=== PATIENT | female | born 1990 | race Caucasian/White ===

== ENCOUNTER 2017-11-30 08:42 | Outpatient (CLI) | payer BC ==
--- NOTE | 2017-11-30 12:05 | RAD ---
ESOPHAGRAM: HISTORY: Dysphagia and difficulty swallowing. Prior fundoplication procedure with recurrent diaphragmatic her adam. FINDINGS: There is a recurrent diaphragmatic hernia with a portion of the fundus fixed above the diaphragm. Th ere is mild luminal narrowing between this fundus above the diaphragm and the portion of the stomach below the diaphragm. There is also mild luminal narrowing at the EG junction, which is above the sandra phragm. A 12 mm barium tablet was swallowed and did not pass beyond the portion of the fundus fixed above the diaphragm. Prominent GE reflux was demonstrated when the patient was placed recumbent. IMPRESSION: Recurrent diaphragmatic hernia with gastroesophageal reflux. POS: [facility]
== END 2017-11-30 08:43 | disposition home or self-care (01) ==
LOC: RAD 08:42
PROVIDERS: ATTEND Internal Medicine Gastroenterology
DX: R13.10 Dysphagia, unspecified (principal); K44.9 Diaphragmatic hernia without obstruction or gangrene; K21.9 Gastro-esophageal reflux disease without esophagitis; Z98.890 Other specified postprocedural states
CPT/HCPCS: 74220

== ENCOUNTER 2018-01-16 11:42 | Outpatient (CLI) | payer BC ==
[2018-01-16 13:07] LABS: #Basophils 0.1 thou/uL (0.0-0.2); #Eosinphils 0.1 thou/uL (0.0-0.7); #Lymphocytes 2.6 thou/uL (1.20-3.40); #Monocytes 0.4 thou/uL (0.11-0.59); %Basophils 1.4 % (0.0-1.0); %Eosinophils 1.2 % (0.0-10.0); %Lymphocytes 42.2 % (21.0-51.0); %Monocytes 6.4 % (0.0-10.0); %Neutrophils 48.8 % (42.0-75.0); Hemoglobin 13.6 g/dL (12.0-16.0); Mean Corpuscular HGB CONC 33.2 g/dL (32.0-36.0); Mean Corpuscular Hemoglobin 27.8 pg (27.0-31.0); Mean Corpuscular Volume 83.8 fl (81.0-99.0); Mean Platelet Volume 8.3 fL (7.4-10.4); Platelet Count 239 thou/uL (130-400); RBC Distribution Width 14.4 % (11.5-14.5); Red Blood Cell (RBC) Count 4.91 mill/uL (4.20-5.40); White Blood Cell (WBC) Count 6.1 thou/uL (4.8-10.8)
[2018-01-16 13:32] LABS: ALT (SGPT) 27 U/L (8-55); AST (SGOT) 23 U/L (5-34); Albumin 4.6 g/dL (3.5-5.0); Alkaline Phosphatase 107 U/L (40-150); Anion Gap 11 mmol/L (10-20); BUN (Urea Nitrogen) 10 mg/dL (7.0-18.7); Bilirubin, Total 0.4 mg/dL (0.2-1.2); Calc. Creatinine Clearance 0 mL/min (70-130); Calcium 9.5 mg/dL (7.8-10.44); Carbon Dioxide 26 mmol/L (22-29); Chloride 107 mmol/L (98-107); Estimated GFR-MDRD 81; Globulin 2.9 g/dL (2.4-3.5); Glucose 80 mg/dL (70-105); Potassium 3.8 mmol/L (3.5-5.1); Protein, Total 7.5 g/dL (6.0-8.3); Sodium 140 mmol/L (136-145)
[2018-01-16 13:56] LABS: BHCG - Serum Negative (NEGATIVE)
[2018-01-16 13:57] LABS: Pregs Control Background? CLEAR/WHITE (CLR/WHITE); Pregs Control Bar Appear? YES (CONTROL BAR)
== END 2018-01-16 11:43 | disposition home or self-care (01) ==
LOC: LABBT 11:42
PROVIDERS: ATTEND Surgery
DX: Z01.812 Encounter for preprocedural laboratory examination (principal); K21.9 Gastro-esophageal reflux disease without esophagitis
CPT/HCPCS: 80053; 84703; 85025

== ENCOUNTER 2018-01-26 05:52 | Inpatient (IN) | payer BC ==
[2018-01-16 12:14] VITALS: BMI 22.4
[2018-01-26] MEDS ORDERED: Bupivacaine/Epinephrine 0.25% 30 ML VIAL ONE (06:27)
[2018-01-26] MEDS ORDERED: Levofloxacin 500 mg/D5W 100 ml Premix Bag ONE (07:11)
--- NOTE | 2018-01-26 07:15 | HP ---
CHIEF COMPLAINT: Recurrent hiatal hernia with gastroesophageal reflux and dysphagia. HISTORY: A 27-year-old female who has had 2 previous hiatal hernia repairs with recurrence, very sym ptomatic with solid food. She has lost 12 pounds. She has quite a bit of pain when the food sticks. She had an EGD showing a recurrent paraesophageal hernia. PAST MEDICAL HISTORY: Significant for anemia, asthma, gastroesophageal reflux, lactose intolerance. PAST SURGICAL HISTORY: Include an EGD x2. She had a laparoscopic Steve fundoplication with EGD in 2011 and recurrence in 2014. MEDICATIONS: Advair, Flonase, ibuprofen, omeprazole, oral contraceptives, Zyrtec, vitamins. ALLERGIES: PENICILLIN. FAMILY HISTORY: Father has cancer. Mother has hypertension. SOCIAL HISTORY: She is , no tobacco, occasional alcohol. PHYSICAL EXAMINATION: VITAL SIGNS: Height 5 foot 4, weight 135, body mass index 23.2. Blood pressure 113/86, pulse 100. GENERAL: Well-developed, well-nourished female in no apparent distress. HEENT: Unremarkable. LUNGS: Clear. HEART: Regular rate and rhythm. ABDOMEN: Soft, nondistended, nontender, no palpable masses or hernias. EXTREMITIES: Good pulses. No pedal edema. ASSESSMENT: Recurrent paraesophageal hernia. PLAN: Laparoscopic paraesophageal hernia repair with mesh. CONSENT: I have discussed the planned procedure as well as risk of bleeding, infection, recurrence, injury to esophagus, spleen, loops of bowel, need to open. She understands and gives informed consen t.
[2018-01-26] MEDS ORDERED: Midazolam HCl 2 mg/2 ml Vial ONE ×2 (07:18→07:19)
[2018-01-26] MEDS ORDERED: Fentanyl 100 MCG/2 ML VIAL ONE (07:19)
[2018-01-26] MEDS ORDERED: HYDROmorphone 0.5 MG/0.5 ML SYRINGE ONE ×2 (07:21→10:21)
[2018-01-26] MEDS ORDERED: Lidocaine 1% (PF) 30 ML VIAL ONE (07:21)
[2018-01-26] MEDS ORDERED: Dextrose 5% in Water 1,000 ML IV PRN (09:45)
[2018-01-26] MEDS ORDERED: diphenhydrAMINE 50 MG/ML VIAL IVP PRN ×2 (09:45→09:47)
[2018-01-26] MEDS ORDERED: Ondansetron HCl/PF 4 MG/2 ML Vial IVP PRN ×2 (09:45→09:47)
[2018-01-26] MEDS ORDERED: Hydrocodone-Acetamin 15 ML UDCUP PO PRN ×2 (09:45→09:57)
[2018-01-26] MEDS ORDERED: hydrALAZINE 20 MG/ML VIAL SLOW IVP PRN (09:45)
[2018-01-26] MEDS ORDERED: Dextrose 50% Abboject 50 ML SYRINGE SLOW IVP PRN (09:45)
[2018-01-26] MEDS ORDERED: Promethazine HCl 25 MG/ML VIAL IM PRN ×2 (09:45→09:47)
[2018-01-26] MEDS ORDERED: diphenhydrAMINE 50 MG/ML VIAL IM PRN (09:47)
[2018-01-26] MEDS ORDERED: Meperidine HCl/PF 25 MG/ML VIAL SLOW IVP PRN (09:47)
[2018-01-26] MEDS ORDERED: diphenhydrAMINE 25 MG CAP PO PRN (09:47)
[2018-01-26] MEDS ORDERED: Naloxone HCl 0.4 mg/ml Vial IV PRN (09:47)
[2018-01-26] MEDS ORDERED: HYDROmorphone 10 mg/100 ml CADD IVPB PRN (09:47)
[2018-01-26] MEDS ORDERED: Promethazine HCl 25 MG/ML VIAL SLOW IVP PRN (09:47)
[2018-01-26] MEDS ORDERED: HYDROmorphone 2 MG/ML VIAL SLOW IVP PRN (09:47)
[2018-01-26] MEDS ORDERED: Zolpidem Tartrate 5 MG TAB PO PRN (09:47)
[2018-01-26] MEDS ORDERED: Communication Order-Pharmacy FS SCH (10:00)
--- NOTE | 2018-01-26 11:24 | OP ---
DATE OF PROCEDURE: 01/26/2018 PREOPERATIVE DIAGNOSIS: Recurrent paraesophageal hernia. SURGEON: Néstor Scott M.D. PROCEDURES PERFORMED: Laparoscopic recurrent paraesophageal hernia repair and EGD. INDICATIONS: This is a 27-year-old female who has had 2 previous hiatal hernia repairs with recurren ce and dysphagia. FINDINGS: Herniated wrap with paraesophageal component, very dense adhesions. The mesh was still in tact. PROCEDURE IN DETAIL: After informed consent was obtained, the patient was taken to the operating stone m and given general endotracheal anesthesia. She was placed in the lithotomy position. Her abdomen was prepped and draped in usual fashion. Local anesthesia infiltrated subcutaneously and deep and a 5 mm incision was performed approximately 8 inches below the xiphoid slightly to the left. Veress ne edle inserted. Drop test performed. Pneumoperitoneum was created to a volume of 2 liters of carbon dioxide. Utilizing a bladeless 5 mm trocar and 0-degree laparoscope, direct visual entry into the ab dominal cavity was performed. Pneumoperitoneum was created to a pressure of [address] aced in steep reverse Trendelenburg position. Nathansen liver retractor inserted. Left lobe of live r retracted superiorly. A second 5 mm port was placed just to the left of the falciform, then 8 mm p ort was placed left subcostal and another 5 mm port placed in left lateral abdomen. There was quite a bit of adhesions around the hiatus and it was just a very tedious careful dissection to free up and reduced this hiatal hernia. The wrap was intrathoracic including a paraesophageal component of the stomach. I was able to get it partially reduced, then placed a Nicky drain underneath and that all owed better retraction and could clean it up and completely reduce it to just a segment approximately 3 cm of esophagus was intra-abdominally. Now, the mesh was still intact and the hiatal opening did not appear to be dilated much. So, basically what I did was placed and sutured the esophagus circumf erentially with eight 2-0 silk sutures tied circumferentially to the hiatus. Then sutured the fundus to the abdominal wall under some tension to maintain reduction of the hernia. This was done also wi th a 2-0 silk suture. Then intraoperative endoscopy was performed. The video endoscope was inserted under direct vision. There was no air leak. There was no bleeding intragastric. The scope was ret roflexed and there was no paraesophageal component. The scope was advanced through the pylorus. It was patent. The stomach decompressed. Scope removed. Now the original repair was done over a 40 Fr ench bougie. Hemostasis assured. Then, Tisseel tissue sealant was applied circumferentially around the repair at the diaphragm. Hemostasis was assured. Trocars and retractors removed. The skin clos ed with interrupted 4-0 Rapide. Dermabond applied. The patient tolerated the procedure well and was transferred to recovery in good condition. Sponge and needle count verified correct x2.
[2018-01-26] MEDS ORDERED: Acetaminophen 1,000 MG in Premix Bag 1 BAG IVPB SCH (12:00)
[2018-01-26] MEDS ORDERED: Ketorolac Tromethamine 30 MG/ML VIAL IVP SCH ×2 (12:00)
[2018-01-26] MEDS: Promethazine HCl 25 MG/ML VIAL IM PRN ×2 (13:23→17:37)
[2018-01-26] MEDS: D5 1/2 NS w/20 mEq KCL 1,000 ML IV SCH ×3 (13:24→21:52)
[2018-01-26] MEDS: Ondansetron HCl/PF 4 MG/2 ML Vial IVP PRN ×2 (13:28→19:36)
[2018-01-26] MEDS: Acetaminophen 1,000 MG in Premix Bag 1 BAG IVPB SCH ×2 (15:16→20:18)
[2018-01-26] MEDS: Ketorolac Tromethamine 30 MG/ML VIAL IVP SCH ×2 (15:17→20:17)
[2018-01-26] MEDS ORDERED: Ketorolac Tromethamine 30 MG/ML VIAL ONE (15:25)
[2018-01-26] MEDS ORDERED: Lidocaine 1% PF 5 ML VIAL ONE (15:25)
[2018-01-26] MEDS ORDERED: Glycopyrrolate 0.2 MG/ML 5 ML SYRINGE ONE (15:25)
[2018-01-26] MEDS ORDERED: Ondansetron HCl/PF 4 MG/2 ML Vial ONE (15:25)
[2018-01-26] MEDS ORDERED: PHENYLEPHRINE-NS 100 MCG/ML 10 ML SYRINGE ONE (15:25)
[2018-01-26] MEDS ORDERED: Dexamethasone 20 MG/5 ML VIAL ONE (15:25)
[2018-01-26] MEDS ORDERED: PROPOFOL 200 MG/20 ML VIAL ONE (15:25)
[2018-01-26] MEDS ORDERED: Metoprolol Tartrate 5 MG/5 ML VIAL ONE (15:25)
[2018-01-27] MEDS: Acetaminophen 1,000 MG in Premix Bag 1 BAG IVPB SCH ×2 (03:57→10:02)
[2018-01-27] MEDS: Ketorolac Tromethamine 30 MG/ML VIAL IVP SCH ×2 (03:57→10:01)
[2018-01-27 06:23] LABS: #Lymphocytes 2.2 thou/uL (1.20-3.40); #Neutrophils 7.8 thou/uL (1.40-6.50); %Eosinophils 0.1 % (0.0-10.0); %Lymphocytes 19.7 % (21.0-51.0); %Monocytes 8.9 % (0.0-10.0); %Neutrophils 71.2 % (42.0-75.0); Hemoglobin 11.4 g/dL (12.0-16.0); Mean Corpuscular HGB CONC 32.9 g/dL (32.0-36.0); Mean Corpuscular Hemoglobin 27.7 pg (27.0-31.0); Mean Corpuscular Volume 84.1 fL (78.0-98.0); Mean Platelet Volume 8.6 fL (7.4-10.4); Platelet Count 189 thou/uL (130-400); RBC Distribution Width 14.4 % (11.5-14.5); Red Blood Cell (RBC) Count 4.12 mill/uL (4.20-5.40); White Blood Cell (WBC) Count 10.9 thou/uL (4.8-10.8)
[2018-01-27 06:28] LABS: Anion Gap 10 mmol/L (10-20); BUN (Urea Nitrogen) 7 mg/dL (7.0-18.7); Calc. Creatinine Clearance 105 mL/min (70-130); Calcium 9.1 mg/dL (7.8-10.44); Carbon Dioxide 25 mmol/L (22-29); Chloride 108 mmol/L (98-107); Estimated GFR-MDRD Greater than 90; Glucose 105 mg/dL (70-105); Potassium 4.4 mmol/L (3.5-5.1); Sodium 139 mmol/L (136-145)
[2018-01-27] MEDS ORDERED: Enoxaparin Sodium 40 MG/0.4 ML SYRINGE SC SCH (09:00)
[2018-01-27] MEDS ORDERED: Pantoprazole 40 MG VIAL IVP SCH (09:00)
--- NOTE | 2018-01-27 09:08 | RAD ---
GASTROGRAFIN MODIFIED UPPER GI: Date: 01/27/18 INDICATION: History of fundoplication slip with recurrent hiatal hernia. Patient underwent hiatal hernia repair y . FLUOROSCOPIC TIME: 1.6 minutes. TOTAL EXPOSURE: 9.722 mGy*cm^2. COMPARISON: Prior barium swallow dated 11/30/17. FINDINGS: Program Development Specialist images demonstrate free air underlying the left hemidiaphragm. There is also a fluid and air co llection within the lower mediastinum. With 30 mL of Gastrografin, there was no evidence of leak. The gastroesophageal junction is now present underlying the left hemidiaphragm. Contrast is seen filling a moderately fluid-filled stomach with slow emptying of the stomach. The fluid and gas collection se en within the lower mediastinum posterior to the esophagus is likely related to a residual cavity lef t from the prior hernia after discussion with Dr. Scott by phone. Dr. Scott indicated that this is co mmon and usually resolves over a few weeks. IMPRESSION: 1. Postoperative changes of a hiatal hernia repair with gastroesophageal junction seen below the lef t hemidiaphragm. There is no evidence of leak or significant obstruction. 2. Pneumoperitoneum consistent with patient's recent postop state. 3. Small fluid and gas collection seen within the posterior mediastinum adjacent to the distal esoph marty, likely related to a small peritoneal cavity left from the prior hernia. Findings discussed with Dr. Scott at 0810 hours on 01/27/18. CODE CR. POS: [facility]
[2018-01-27] MEDS ORDERED: GASTROGRAFIN 30 ML BOT ONE (10:03)
[2018-01-27] MEDS ORDERED: Hydrocodone-Acetamin 15 ML UDCUP PO PRN (10:03)
[2018-01-27] MEDS: D5 1/2 NS w/20 mEq KCL 1,000 ML IV SCH (11:22)
[2018-01-27 12:28] VITALS: BP 118/75; TEMP 98.5
--- NOTE | 2018-01-27 12:44 | DIS ---
DISCHARGE DIAGNOSIS: Recurrent paraesophageal hernia. SURGEON: Dr. Néstor Scott PROCEDURE PERFORMED: Laparoscopic paraesophageal hernia repair recurrent. HOSPITAL COURSE: The patient was admitted, given IV fluids, taken to the operating room where she un derwent a laparoscopic redo of her paraesophageal hernia. She had quite a bit of prolapse into the t horacic cavity. This was all dissected out and reconstructed the diaphragm with sutures to the esoph marty and also sutured the fundus to the abdominal wall with a little tension to keep it from recurrin g. Gastrografin swallow was performed that was fine except they saw some air fluid in the mediastinu m which was from the dissection. She is tolerating liquids well. Pain is controlled on p.o. meds. She is discharged home on hydrocodone and Zofran. She will follow up with me in 2 weeks.
== END 2018-01-26 12:55 | disposition home or self-care (01) | DRG 328 ==
LOC: SDC 05:52 → SJJU 11:57
PROVIDERS: ADMIT Surgery; ATTEND Surgery
PROC: 0BQT4ZZ Repair Diaphragm, Percutaneous Endoscopic Approach (ICD-10-PCS; principal; 2018-01-26)
DX: K44.9 Diaphragmatic hernia without obstruction or gangrene (principal); K21.9 Gastro-esophageal reflux disease without esophagitis; R13.10 Dysphagia, unspecified; J45.909 Unspecified asthma, uncomplicated; E73.9 Lactose intolerance, unspecified
CPT/HCPCS: 36415; 80048; 85025; 94760; J0131; J1100; J1170; J1885; J1956; J2001; J2250; J2405; J2550; J2704; J3010

== ENCOUNTER 2018-10-20 19:35 | Emergency (ER) | payer BC ==
[2018-10-20] MEDS ORDERED: Ondansetron PF 4 MG/2 ML Vial ONE (20:07)
[2018-10-20 20:09] LABS: #Lymphocytes 0.7 thou/uL (1.20-3.40); #Monocytes 0.5 thou/uL (0.11-0.59); #Neutrophils 6.5 thou/uL (1.40-6.50); %Basophils 0.6 % (0.0-1.0); %Eosinophils 0.3 % (0.0-10.0); %Lymphocytes 9.1 % (21.0-51.0); %Monocytes 5.9 % (0.0-10.0); %Neutrophils 84.1 % (42.0-75.0); Hemoglobin 13.8 g/dL (12.0-16.0); Mean Corpuscular HGB CONC 33.5 g/dL (32.0-36.0); Mean Corpuscular Hemoglobin 29.5 pg (27.0-31.0); Mean Corpuscular Volume 87.9 fL (78.0-98.0); Mean Platelet Volume 8.4 fL (7.4-10.4); Platelet Count 211 thou/uL (130-400); RBC Distribution Width 12.1 % (11.5-14.5); Red Blood Cell (RBC) Count 4.68 mill/uL (4.20-5.40); White Blood Cell (WBC) Count 7.7 thou/uL (4.8-10.8)
[2018-10-20 20:17] LABS: BHCG - Serum Negative (NEGATIVE); Pregs Control Background? CLEAR/WHITE (CLR/WHITE); Pregs Control Bar Appear? YES (CONTROL BAR)
[2018-10-20 20:23] LABS: ALT (SGPT) 15 U/L (8-55); AST (SGOT) 15 U/L (5-34); Albumin 4.3 g/dL (3.5-5.0); Alkaline Phosphatase 99 U/L (40-150); Anion Gap 15 mmol/L (10-20); BUN (Urea Nitrogen) 11 mg/dL (7.0-18.7); Bilirubin, Total 0.6 mg/dL (0.2-1.2); Calc. Creatinine Clearance 0 mL/min (70-130); Carbon Dioxide 22 mmol/L (22-29); Chloride 107 mmol/L (98-107); Estimated GFR-MDRD Greater than 90; Globulin 2.3 g/dL (2.4-3.5); Glucose 121 mg/dL (70-105); Lipase 18 U/L (8-78); Potassium 3.6 mmol/L (3.5-5.1); Protein, Total 6.6 g/dL (6.0-8.3); Sodium 140 mmol/L (136-145)
== END 2018-10-20 22:19 | disposition home or self-care (01) ==
LOC: SCSER 19:35
DX: R11.2 Nausea with vomiting, unspecified (principal); R19.7 Diarrhea, unspecified
CPT/HCPCS: 80053; 83690; 84703; 85025; 93005; 96361; 96374; J2405

== ENCOUNTER 2022-04-08 10:58 | Day surgery (SDC) | payer BC ==
[2022-04-06 11:31] VITALS: BMI 24.0
[2022-04-08] MEDS ORDERED: Oxymetazoline HCl 0.05% (30 ML BOT) ONE ×2 (11:41→13:54)
[2022-04-08] MEDS ORDERED: fentaNYL Citrate/PF 100 MCG/2 ML SYRINGE ONE (13:51)
[2022-04-08] MEDS ORDERED: Lidocaine 4% Topical Sol 50 ML BOT ONE (13:51)
[2022-04-08] MEDS ORDERED: Bacitracin Zinc Ointment 30 gm TUBE ONE (13:54)
[2022-04-08] MEDS ORDERED: Bupivacaine/Epinephrine 0.25% 30 ML VIAL ONE (13:54)
[2022-04-08] MEDS ORDERED: Ondansetron PF 4 MG/2 ML Vial ONE (14:06)
[2022-04-08] MEDS ORDERED: PROPOFOL 200 MG/20 ML VIAL ONE (14:06)
[2022-04-08] MEDS ORDERED: Glycopyrrolate 0.2 MG/ML 5 ML SYRINGE ONE (14:06)
[2022-04-08] MEDS ORDERED: Dexamethasone 20 MG/5 ML VIAL ONE (14:06)
[2022-04-08] MEDS ORDERED: Rocuronium Bromide 10 MG/ML (10ML VIAL) ONE (14:06)
[2022-04-08] MEDS ORDERED: NEOSTIGMINE 3 MG/3 ML SYR 3 MG/3 ML SYRINGE ONE (14:06)
[2022-04-08] MEDS ORDERED: ePHEDrine 50 MG/ML VIAL ONE (14:06)
[2022-04-08] MEDS ORDERED: Lidocaine 1% MPF 2 ML VIAL ONE (14:06)
[2022-04-08] MEDS ORDERED: SUGAMMADEX SODIUM 200 MG/2 ML VIAL ONE (15:05)
[2022-04-08] MEDS ORDERED: Fentanyl 100 MCG/2 ML VIAL ONE (15:37)
== END 2022-04-08 16:54 | disposition home or self-care (01) ==
LOC: SDC 10:58
PROVIDERS: ATTEND Specialist
PROC: 09BR8ZZ Excision of Left Maxillary Sinus, Via Natural or Artificial Opening Endoscopic (ICD-10-PCS; principal; 2022-04-08)
PROC: 099S8ZZ Drainage of Right Frontal Sinus, Via Natural or Artificial Opening Endoscopic (ICD-10-PCS; principal; 2022-04-08)
PROC: 09TU8ZZ Resection of Right Ethmoid Sinus, Via Natural or Artificial Opening Endoscopic (ICD-10-PCS; principal; 2022-04-08)
PROC: 099W8ZZ Drainage of Right Sphenoid Sinus, Via Natural or Artificial Opening Endoscopic (ICD-10-PCS; principal; 2022-04-08)
PROC: 099X8ZZ Drainage of Left Sphenoid Sinus, Via Natural or Artificial Opening Endoscopic (ICD-10-PCS; principal; 2022-04-08)
PROC: 09SL8ZZ Reposition Nasal Turbinate, Via Natural or Artificial Opening Endoscopic (ICD-10-PCS; principal; 2022-04-08)
PROC: 09BQ8ZZ Excision of Right Maxillary Sinus, Via Natural or Artificial Opening Endoscopic (ICD-10-PCS; principal; 2022-04-08)
PROC: 099T8ZZ Drainage of Left Frontal Sinus, Via Natural or Artificial Opening Endoscopic (ICD-10-PCS; principal; 2022-04-08)
PROC: 09TV8ZZ Resection of Left Ethmoid Sinus, Via Natural or Artificial Opening Endoscopic (ICD-10-PCS; principal; 2022-04-08)
DX: J32.4 Chronic pansinusitis (principal); J34.3 Hypertrophy of nasal turbinates; G89.29 Other chronic pain; R51.9 Headache, unspecified; J33.9 Nasal polyp, unspecified; M41.9 Scoliosis, unspecified; G25.81 Restless legs syndrome; Z79.899 Other long term (current) drug therapy; Z88.0 Allergy status to penicillin
CPT/HCPCS: J1100; J2405; J2704; J3010; J3490

== ENCOUNTER → 2022-06-14 | Day surgery (SDC) | payer BC | END | disposition home or self-care (01) | LOC: SDC 13:41 | PROVIDERS: ATTEND Internal Medicine Gastroenterology | DX: K21.9 Gastro-esophageal reflux disease without esophagitis (principal); Z88.0 Allergy status to penicillin; Z91.011 Allergy to milk products | CPT/HCPCS: 91034 ==